=== PATIENT | female | born 1975 | race Caucasian/White ===

== ENCOUNTER 2023-09-12 06:57 | Outpatient (OUT) | payer OTHER, SELFPAY ==
--- NOTE | 2023-09-12 | MM_ITS ---
Patient Name: STACY FONSECA MR#: [id number] : 1975 Exam Date: 09/12/2023 Ordering Doctor: DR TAHMINA SCHULZ RADIOLOGY REPORT PROCEDURE: MM TOMOSYNTHESIS SCREENING BI COMPARISON: MG MAMM SCREEN 3D ALVARADO CAD, 05/06/2021. MG MAMM SCREEN 3D ALVARADO CAD, 06/28/2022. INDICATIONS: Alvarado Screening Mammogram Calculator Name NCI Breast Cancer Risk Assessment Tool 5 Year Breast Cancer Risk 1.30% Lifetime Breast Cancer Risk 12.30% Personal Breast Cancer No Personal Ovarian Cancer No Treatments None Family Cancers Aunt-paternal with breast cancer at age 43; Aunt-paternal with breast cancer at age 44; Father with lung cancer at age 52; Uncle-paternal with lung cancer at age 53; Uncle-paternal with lung cancer at age 54. LOCATION: [facility] BREAST COMPOSITION: Heterogeneously dense,which may obscure small masses. FINDINGS: DIAGNOSTIC CATEGORY 0--INCOMPLETE: NEED ADDITIONAL IMAGING EVALUATION. This exam includes additional mammographic views for implant evaluation and shows no visible implant abnormality. Scattered benign-appearing calcifications are present. RIGHT BREAST: No significant suspicious finding. LEFT BREAST: 2 new well-circumscribed irregular nodules best seen on the CC projection in the medial half breast measuring 1.1 x 0.7 cm in the anterior breast and 1.1 x 0.7 cm in the mid to posterior breast. One of these lesions is clearly seen on the MLO projection measuring 8.6 mm a 2nd lesion is likely along the cranial anterior breast measuring 1.2 cm. Spot compression views and ultrasound follow-up is required. RECOMMENDATIONS: ADDITIONAL MAMMOGRAPHIC VIEWS REQUIRED: LEFT BREAST - spot compression views of 2 separate nodules ULTRASOUND: LEFT BREAST PLEASE NOTE: A NORMAL MAMMOGRAM DOES NOT EXCLUDE THE POSSIBILITY OF BREAST CANCER. A CLINICALLY SUSPICIOUS PALPABLE LUMP SHOULD BE BIOPSIED. Dictated by: Jose J Durant MD on 09/12/2023 at 09:42 Approved by: Jose J Durant MD on 09/12/2023 at 09:47
== END 2023-09-12 06:58 | disposition home or self-care (01) ==
LOC: MAMMO 06:57
PROVIDERS: PCP Nurse Practitioner Family; Visit Provider Nurse Practitioner Family
DX: Z12.31 Encounter for screening mammogram for malignant neoplasm of breast (principal); Z80.3 Family history of malignant neoplasm of breast; Z80.1 Family history of malignant neoplasm of trachea, bronchus and lung; N63.20 Unspecified lump in the left breast, unspecified quadrant
CPT/HCPCS: 77063; 77067

== ENCOUNTER 2023-10-03 12:47 | Outpatient (OUT) | payer OTHER, SELFPAY ==
--- NOTE | 2023-10-03 | US_ITS ---
Patient Name: STACY FONSECA MR#: [id number] : 1975 Exam Date: 10/03/2023 Ordering Doctor: DR TAHMINA SCHULZ RADIOLOGY REPORT PROCEDURE: MM DIAGNOSTIC MAMMO UNILAT LT, 10/03/2023, 12:54 US BREAST LT LIMITED, 10/03/2023, 12:10 COMPARISON: MM TOMOSYNTHESIS SCREENING BI, 09/12/2023. INDICATIONS: Abnormal Mammogram R92.8 Calculator Name NCI Breast Cancer Risk Assessment Tool 5 Year Breast Cancer Risk 1.30% Lifetime Breast Cancer Risk 12.30% Personal Breast Cancer No Personal Ovarian Cancer No Treatments None Family Cancers Aunt-paternal with breast cancer at age 43; Aunt-paternal with breast cancer at age 44; Father with lung cancer at age 52; Uncle-paternal with lung cancer at age 53; Uncle-paternal with lung cancer at age 54. LOCATION: [facility] BREAST COMPOSITION: Heterogeneously dense,which may obscure small masses. FINDINGS: DIAGNOSTIC CATEGORY 3--PROBABLY BENIGN FINDING. THE FOLLOWING FINDING(S) HAS A HIGH PROBABILITY OF A BENIGN ETIOLOGY: Spot compression views of the left breast demonstrate 2 focal nodules at the 11 o'clock position measuring 8.9 x 6.7 mm with lobular margins and at the 8 o'clock position measuring 9.8 x 6.9 mm. Ultrasound demonstrates 3 focal lesions. At the 11 o'clock position is an oval 8.8 x 3.4 x 6.9 mm area of hypoechogenicity with multiple internal echoes and no color flow, a complex cyst is favored. Identified at the 11 o'clock position is an oval area of hypoechogenicity with a hypervascular hilum measuring 5.4 x 2.2 x 4.6 mm, a lymph node is favored. At the 8 o'clock position is a focal area of anechoic echogenicity with a few low-level echoes measuring 4.1 by 2.3 x 2.1 mm. Complex cyst is favored. Given the multiplicity and indeterminate ultrasound appearance. Six-month follow-up left diagnostic mammogram and ultrasound is recommended to document stability RECOMMENDATIONS: SHORT TERM FOLLOW-UP DIAGNOSTIC MAMMOGRAM LEFT BREAST IN 6 MONTHS. SHORT TERM FOLLOW-UP ULTRASOUND LEFT BREAST IN 6 MONTHS. PLEASE NOTE: A NORMAL MAMMOGRAM DOES NOT EXCLUDE THE POSSIBILITY OF BREAST CANCER. A CLINICALLY SUSPICIOUS PALPABLE LUMP SHOULD BE BIOPSIED. Dictated by: Jose J Durant MD on 10/03/2023 at 13:39 Approved by: Jose J Durant MD on 10/03/2023 at 13:42
--- NOTE | 2023-10-03 12:52 | MM_ITS ---
Patient Name: STACY FONSECA MR#: [id number] : 1975 Exam Date: 10/03/2023 Ordering Doctor: DR TAHMINA SCHULZ RADIOLOGY REPORT PROCEDURE: MM DIAGNOSTIC MAMMO UNILAT LT, 10/03/2023, 12:54 US BREAST LT LIMITED, 10/03/2023, 12:10 COMPARISON: MM TOMOSYNTHESIS SCREENING BI, 09/12/2023. INDICATIONS: Abnormal Mammogram R92.8 Calculator Name NCI Breast Cancer Risk Assessment Tool 5 Year Breast Cancer Risk 1.30% Lifetime Breast Cancer Risk 12.30% Personal Breast Cancer No Personal Ovarian Cancer No Treatments None Family Cancers Aunt-paternal with breast cancer at age 43; Aunt-paternal with breast cancer at age 44; Father with lung cancer at age 52; Uncle-paternal with lung cancer at age 53; Uncle-paternal with lung cancer at age 54. LOCATION: [facility] BREAST COMPOSITION: Heterogeneously dense,which may obscure small masses. FINDINGS: DIAGNOSTIC CATEGORY 3--PROBABLY BENIGN FINDING. THE FOLLOWING FINDING(S) HAS A HIGH PROBABILITY OF A BENIGN ETIOLOGY: Spot compression views of the left breast demonstrate 2 focal nodules at the 11 o'clock position measuring 8.9 x 6.7 mm with lobular margins and at the 8 o'clock position measuring 9.8 x 6.9 mm. Ultrasound demonstrates 3 focal lesions. At the 11 o'clock position is an oval 8.8 x 3.4 x 6.9 mm area of hypoechogenicity with multiple internal echoes and no color flow, a complex cyst is favored. Identified at the 11 o'clock position is an oval area of hypoechogenicity with a hypervascular hilum measuring 5.4 x 2.2 x 4.6 mm, a lymph node is favored. At the 8 o'clock position is a focal area of anechoic echogenicity with a few low-level echoes measuring 4.1 by 2.3 x 2.1 mm. Complex cyst is favored. Given the multiplicity and indeterminate ultrasound appearance. Six-month follow-up left diagnostic mammogram and ultrasound is recommended to document stability RECOMMENDATIONS: SHORT TERM FOLLOW-UP DIAGNOSTIC MAMMOGRAM LEFT BREAST IN 6 MONTHS. SHORT TERM FOLLOW-UP ULTRASOUND LEFT BREAST IN 6 MONTHS. PLEASE NOTE: A NORMAL MAMMOGRAM DOES NOT EXCLUDE THE POSSIBILITY OF BREAST CANCER. A CLINICALLY SUSPICIOUS PALPABLE LUMP SHOULD BE BIOPSIED. Dictated by: Jose J Durant MD on 10/03/2023 at 13:39 Approved by: Jose J Durant MD on 10/03/2023 at 13:42
--- OUTSIDE RECORDS SUMMARY | 2023-10-03 12:54 | XMS_ITS | CCD ---
Author Name Unknown Address [facility] [place] [address] Organization [facility] Care Team Providers Care Fabrication And Layout Craftsman Name Role Phone DR TAHMINA COSBY Admitting Unavailable HARJEET, DR TAHMINA Milian Attending Unavailable HARJEET, DR TAHMINA Milian Primary Care Unavailable DR CHIVO GOOD Consulting Unavailable HARJEET, DR TAHMINA Milian Consulting Unavailable Harjeet RESIDENTIAL REAL ESTATE APPRAISER-CERTIFIED MASTER SAFECRACKER, Tahmina Alvarez Primary Care Provider Allergies Allergy Classification Reported Allergen(s) Allergy Type Date of Onset Reaction(s) Facility (1 source) Penicillins Propensity to adverse reactions to drug 11-22-2022 [facility] Medications Current Medications Medication Drug Class(es) Dates Sig (Normalized) Sig (Original) [id number] 200 actuat albuterol 0.09 mg/actuat metered dose inhaler (1 source) beta2-Adrenergic Agonist Start: 11-28-2022 take 2 puff(s) by inhalation every six hours as needed for wheezing albuterol (PROVENTIL HFA;VENTOLIN HFA) 90 mcg/actuation inhaler Indications: Mild intermittent asthma without complication INHALE 2 PUFFS EVERY 6 HOURS NEEDED FOR WHEEZING 8 g 5 11/28/2022 Active Ethinyl Estradiol / Levonorgestrel (1 source) Progestin, Estrogen, Progestin-containi ng Intrauterine Device Start: 11-22-2022 take 1 tablet by mouth once in the morning levonorgestreL-eth inyl estrad (SEASONALE) 0.15 mg-30 mcg (91) per tablet Take 1 tablet by mouth in the morning. 91 tablet 3 11/22/2022 Active levothyroxine sodium 0.05 mg oral tablet (1 source) l-Thyroxine Start: 07-12-2022 take 1 tablet by mouth in the morning levothyroxine (SYNTHROID, LEVOTHROID) 50 MCG tablet Take 1 tablet (50 mcg total) by mouth in the morning. 0 07/12/2022 Active linaclotide 0.145 mg oral capsule (1 source) Guanylate Cyclase-C Agonist Start: 04-18-2023 take 1 capsule by mouth once daily LINZESS 145 mcg capsule Indications: Irritable bowel syndrome with constipation TAKE 1 CAPSULE BY MOUTH EVERY DAY 90 capsule 1 04/18/2023 Active liothyronine sodium 0.005 mg oral tablet (1 source) l-Triiodothyronine take 1 tablet by mouth in the morning liothyronine (CYTOMEL) 5 MCG tablet Take 1 tablet (5 mcg total) by mouth in the morning. 0 Active terbinafine 250 mg oral tablet (1 source) Allylamine Antifungal Start: 07-26-2023 End: 10-24-2023 take 1 tablet by mouth in the morning terbinafine (LamISIL) 250 mg tablet Indications: Onychomycosis Take 1 tablet (250 mg total) by mouth in the morning for 90 days. 90 tablet 0 07/26/2023 10/24/2023 Active Problems Active Problems Problem Classification Problem Date Documented Da te Episodic/Chronic Asthma (1 source) Asthma; Translations: [Unspecified asthma, uncomplicated] Onset: 10-11-2022 10-11-2022 Chronic Mycoses (1 source) Onychomycosis; Translations: [Tinea unguium] Onset: 07-26-2023 07-26-2023 Episodic Other gastrointestinal disorders (1 source) Irritable bowel syndrome; Translations: [Irritable bowel syndrome without diarrhea] Onset: 10-11-2022 10-11-2022 Chronic Other screening for suspected conditions (not mental disorders or infectious disease) (6 sources) Encounter for screening mammogram for malignant neoplasm of breast; Translations: [Mammography abnormal] Onset: 06-28-2022 Episodic Residual codes; unclassified (1 source) Family history of malignant neoplasm of breast; Translations: [FAMILY HX MALIG NEOPLASM OF BREAST] Onset: 07-02-2022 Episodic Residual codes; unclassified (1 source) Family history of malignant neoplasm of trachea, bronchus and lung; Translations: [FAM HX MALIG NEOPLSM TRACH BRON LNG] Onset: 07-02-2022 Episodic Thyroid disorders (1 source) Xavi thyroiditis; Translations: [Autoimmune thyroiditis] Onset: 12-26-2017 10-11-2022 Chronic Past or Other Problems Problem Classification Problem Date Documented Date Episodic/Chronic Esophageal disorders (1 source) Gastroesophageal reflux disease; Translations: [Gastro-esophageal reflux disease without esophagitis] Onset: 10-11-2022 Resolved: 11-22-2022 11-22-2022 Chronic Mood disorders (1 source) Mood disorders Onset: 01-22-2023 01-22-2023 Other connective tissue disease (1 source) Foot pain; Translations: [Pain in unspecified foot] Onset: 10-11-2022 10-11-2022 Episodic Other nutritional; endocrine; and metabolic disorders (1 source) Overweight; Translations: [Overweight] Onset: 10-11-2022 10-11-2022 Episodic Results Test Name Value Interpretation Reference Range Facil ity MG MAMM SCREEN 3D ALVARADO CADon 06-28-2022 MG MAMM SCREEN 3D ALVARADO CAD Patient: GRACE FONSECA Exam Date: 06/28/2022 : 1975 Gender:F Ordering : DR TAHMINA COSBY Admission #: [id number] Family : Order #: [id number] CLICK HERE TO VIEW EXAM RADIOLOGY REPORT PROCEDURE: MAMMOGRAM SCREENING 3D BILATERAL CAD COMPARISON: MG MAMM SCREEN 3D ALVARADO CAD, 05/06/2021. MG MAMM SCREEN ALVARADO W CAD, 01/14/2020. INDICATIONS: Screening mammography Calculator Name NCI Breast Cancer Risk Assessment Tool 5 Year Breast Cancer Risk 1.30% Lifetime Breast Cancer Risk 12.50% Personal Breast Cancer No Personal Ovarian Cancer No Treatments None Family Cancers Aunt-paternal with breast cancer at age 43; Aunt-paternal with breast cancer at age 44; Father with lung cancer at age 52; Uncle-paternal with lung cancer at age 53; Uncle-paternal with lung cancer at age 54. LOCATION: [facility] BREAST COMPOSITION: Heterogeneously dense,which may obscure small masses. FINDINGS: DIAGNOSTIC CATEGORY 2--BENIGN FINDING: RIGHT BREAST: No significant suspicious finding. Stable benign-appearing lymph node within anterior upper inner quadrant. This exam includes additional mammographic views for implant evaluation and shows no visible implant abnormality. No significant change has occurred. LEFT BREAST: No significant suspicious finding. This exam includes additional mammographic views for implant evaluation and shows no visible implant abnormality. No significant change has occurred. RECOMMENDATIONS: ROUTINE MAMMOGRAM AND CLINICAL EVALUATION IN 12 MONTHS. PLEASE NOTE: A NORMAL MAMMOGRAM DOES NOT EXCLUDE THE POSSIBILITY OF BREAST CANCER. A CLINICALLY SUSPICIOUS PALPABLE LUMP SHOULD BE BIOPSIED. Dictated by: Chivo Good M.D. on 06/28/2022 at 14:21 Approved by: Chivo Good M.D. on 06/28/2022 at 14:28 Normal [facility] IMAGE-GUIDED PAP W/AGE BASED SCR PROTOCOLSon 10-30-2020 COMMENT Normal [facility] Comment on above: Result Comment: This order for age-based cervical cancer and STI screening follows ACOG guidelines(PB 168, 140, IPU235). See individual assays for performing site location. Performed By: #### 9 [id number], [id number] #### [facility] [address] Maintenance Associate: Estuardo Navarrete MD Result Comment: EXPL ANATORY NOTE: The Pap is a screening test for cervical cancer. It is not a diagnostic test and is subject to false negative and false positive results. It is most reliable when a satisfactory sample, regularly obtained, is submitted with relevant clinical findings and history, and when the Pap result is evaluated along with historic and current clinical information. THINPREP TIS PAP AND HPV mRN A E6/E7 REFLEX HPV 16,18/45on 10-30-2020 CLINICAL INFORMATION: Normal [facility] Comment on above: Result Comment: Rout ine exam Performed By: #### 9 [id number], [id number] #### [facility] [address] Maintenance Associate: Estuardo Navarrete MD COMMENT: Normal [facility] Comment on above: Result Comment: This Pap test has been evaluated with computer assisted technology. Performed By: #### 9 8718, [id number] #### [facility] [address] Maintenance Associate: Estuardo Navarrete MD FURNITURE BUILDER: [facility] Comment on above: Result Comment: BH, CT(ASCP) CT screening location: [place] [address]. Performed By: #### 9 1414, [id number] #### [facility], [address] [place] [address] Maintenance Associate: Estuardo Navarrete MD INTERPRETATION/RE SULT: Normal [facility] Comment on above: Result Comment: Nega tive for intraepithelial lesion or malignancy. Performed By: #### 9 1414, [id number] #### [facility], [address] [place] [address] Maintenance Associate: Estuardo Navarrete MD LMP: Normal [facility] Comment on above: Result Comment: None given Performed By: #### 9 1414, [id number] #### [facility], [address] [place] [address] Maintenance Associate: Estuardo Navarrete MD Platelet mean volume (Bld) [Entitic vol] Not Detected Normal Not Detected [facility] Comment on above: Result Comment: Meth odology: Flight Test Data Acquisition Technician-Mediated Amplification This assay detects E6/E7 viral messenger RNA (mRNA) from 14 high-risk HPV types (16,18,31,33,35,39,45,51,52,56,58,59,66,68). The analytical performance characteristics of this assay have been determined by [facility]. The modifications have not been cleared or approved by the FDA. This assay has been validated pursuant to the CLIA regulations and is used for clinical purposes. For additional information, please refer to http://education.DigitalOcean.Aveillant/FPA793s1 (This link if provided for information/ educational purposes only.) Performed By: #### 9 1790, [id number] #### [facility], [address] [place] [address] Maintenance Associate: Estuardo Navarrete MD PREV. BX: Normal [facility] Comment on above: Result Comment: None given Performed By: #### 9 1414, [id number] #### [facility], [address] [place] [address] Maintenance Associate: Estuardo Navarrete MD PREV. PAP: Normal [facility] Comment on above: Result Comment: None given Performed By: #### 9 1414, [id number] #### [facility], [address] [place] [address] Maintenance Associate: Estuardo Navarrete MD REVIEW FURNITURE BUILDER: Normal [facility] Comment on above: Result Comment: RLP, CT(ASCP) CT screening location: [place] [address]. Performed By: #### 9 1414, [id number] #### [facility], [address] [place] [address] Maintenance Associate: Estuardo Navarrete MD SOURCE: Normal [facility] Comment on above: Result Comment: None given Performed By: #### 9 1414, [id number] #### [facility], [address] [place] [address] Maintenance Associate: Estuardo Navarrete MD STATEMENT OF ADEQUACY: Normal [facility] Comment on above: Result Comment: Sati sfactory for evaluation. Endocervical/transformation zone component absent. Performed By: #### 9 1414, [id number] #### [facility], [address] [place] [address] Maintenance Associate: Estuardo Navarrete MD Encounters Encounter Date Encounter Type Care Provider Facility Start: 09-17-2023 Orders Only Tahmina Cosby APRN-CERTIFIED MASTER SAFECRACKER Work Phone: [facility] Comment on above: Abnormal mammogram ( Primary Dx) Start: 06-28-2022 End: 06-29-[address] TAHMINA COSBY Facility:[facility] Procedures Date Procedure Procedure Detail Performing Clinician Start: 09-12-2023 Mammography Tahmina Cosby APRN-CERTIFIED MASTER SAFECRACKER Work Phone: Start: 01-22-2023 Adult depression scr eening assessment Tahmina Cosby RESIDENTIAL REAL ESTATE APPRAISER-CERTIFIED MASTER SAFECRACKER Work Phone: Plan of Treatment Date Care Activity Detail Author Start: 02-09-2026 Screening for malign ant neoplasm of colon Colon Cancer Screening 3 Year Cologuard [facility] Start: 10-27-2025 Screening for malign ant neoplasm of cervix Pap Smear [facility] Start: 09-12-2024 Screening for malign ant neoplasm of breast Mammogram [facility] Start: 01-23-2024 Adult BMI Screening Adult BMI Screen ing [facility] Start: 01-23-2024 Depression Screening Depression Scre ening [facility] Start: 01-23-2024 Tobacco Screening Tobacco Screening [facility] Start: 09-17-2023 End: 09-17-2024 MG Breast duct - left Views W contrast intra duct Mammography diagnostic unilateral left with CAD Imaging Routine Abnormal mammogram Expected: 09/17/2023, Expires: 09/17/2024 [facility] Work Phone: Comment on above: Expected: 09/17/2023 , Expires: 09/17/2024 Start: 09-17-2023 End: 09-17-2024 US Breast - left limited Ultrasound breast limited left Imaging Routine Abnormal mammogram Expected: 09/17/2023, Expires: 09/17/2024 [facility] Comment on above: Expected: 09/17/2023 , Expires: 09/17/2024 Start: 1992 DTaP,Tdap and Td Vaccines (1 - Tdap) DTaP,Tdap and Td Vaccines (1 - Tdap) [facility] Start: 12-20-1991 Adult BMI Follow Up Plan Adult BMI Follow Up Plan [facility] Immunizations Immunization Date Immunization Notes Care Provider Ray sheldon 06-26-2023 influenza virus vaccine, unspecified formulation Tahmina Harjeet RESIDENTIAL REAL ESTATE APPRAISER-CERTIFIED MASTER SAFECRACKER Work Phone: [facility] 09-26-2017 Influenza, injectabl e, Madin Liberty Canine Kidney, preservative free, quadrivalent Tahmina Harjeet MORENO-CERTIFIED MASTER SAFECRACKER Work Phone: [facility] 09-26-2017 tuberculin skin test ; purified protein derivative solution, intradermal Tahmina Cosby APRN-CERTIFIED MASTER SAFECRACKER Work Phone: [facility] Payers Date Payer Category Payer Private Health Insurance [facility] [id number] 2022-Present [phone] [address] [address] [place] [address] [id number] 1975 Unknown [id number] 1961 Private Health Insurance [id number] Social History Date Type Detail Facility Start: 11-22-2022 Tobacco smoking status NHIS Never smoked tobacco [facility] Start: 11-22-2022 Tobacco use and exposure Smokeless tobacco non-user [facility] Start: 01-22-2023 Alcohol intake Ex-drinker (finding) [facility] Start: 11-20-2022 End: 01-22-[address] [facility] Start: 11-20-2022 End: 01-22-2023 Tobacco use panel [facility] How hard is it for you to pay for the very basics like food, housing, medical care, and heating Not hard at all [facility] Start: 11-22-2022 Alcohol Comment occasion [facility] Start: 1975 Sex Assigned At Not on file [facility] NEGATED: Highlighted rowStart: NINF History of tobacco use Passive smoker [facility] Evaluation note Note Date & Type Note Facility Evaluation note Diagnosis Abnormal mammogram- Primary Abnormal mammogram, unspecified documented in this encounter [facility] Instructions Note Date & Type Note Facility Instructions Not on filedocumented in this en counter [facility] Summary Purpose Family History No Family History Records FoundNo Family History Records Found Advance Directives No Advanced Directives Records FoundNo Advanced Directives Records Found Additional Source Comments INFORMATION SOURCE (unrecogn ized section and content) DATE CREATED AUTHOR 11/01/2020 [facility] DATE CREATED AUTHOR AUTHOR'S ORGANIZ ATION 07/03/2022 [facility] Care Teams (unrecognized sec tion and content) Fabrication And Layout Craftsman Relationship Specialty Start Date End Date Tahmina Cosby, TIFFANIE-GERRI [address] [place] [address] PCP - General Internal Medicine 10/10/22 FOR RECORDS PERTAINING TO PATIENTS WHO ARE OR HAVE BEEN ENROLLED IN A CHEMICAL DEPENDENCY/SUBSTANCEABUSE PROGRAM, SOME INFORMATION MAY BE OMITTED. This clinical summary was aggregated from multiple sources. Caution should be exercised in using it in the provision of clinical care. This summary normalizes information from multiple sources, and as a consequence, information in this document may materially change the coding, format and clinical context of patient data. In addition, data may be omitted in some cases. CLINICAL DECISIONS SHOULD BE BASED ON THE PRIMARY CLINICAL RECORDS. [facility] [employer] [facility]. provides no warranty or guarantee of the accuracy or completeness of information in this document.
== END 2023-10-03 12:48 | disposition home or self-care (01) ==
LOC: MAMMO 12:47
PROVIDERS: PCP Nurse Practitioner Family; Visit Provider Nurse Practitioner Family
DX: R92.8 Other abnormal and inconclusive findings on diagnostic imaging of breast (principal); Z80.3 Family history of malignant neoplasm of breast; Z80.1 Family history of malignant neoplasm of trachea, bronchus and lung
CPT/HCPCS: 76642; 77065

== ENCOUNTER 2024-04-10 09:17 | Outpatient (OUT) | payer OTHER, SELFPAY ==
--- OUTSIDE RECORDS SUMMARY | 2024-04-10 09:22 | XMS_ITS | CCD ---
Author Organization [facility] Inform ion Partnership [facility] Care Team Providers Care Dining Chair Seat Cushion Trimmer Name Role Phone DR DALILA COSBY Admitting Unavailable HARJEET, DR DALILA Milian Attending Unavailable HARJEET, DR DALILA Milian Primary Care Unavailable DR CHIVO GOOD Consulting Unavailable HARJEET, DR DALILA Milian Consulting Unavailable Harjeet RELATIONSHIP EXECUTIVE-KELLER MACHINE OPERATOR, Dalila Alvarez Primary Care Provider DALILA COSBY Attending Unavailable DALILA COSBY Referring Unavailable DALILA COSBY Primary Care Unavailable Allergies Allergy Classification Reported Allergen(s) Allergy Type Date of Onset Reaction(s) Facility (4 sources) Penicillins; Translations: [PENICILLINS] Propensity to adverse reactions to drug 11-22-2022 [facility] Medications Current Medications Medication Drug Class(es) Dates Sig (Normalized) Sig (Original) Ethinyl Estradiol / Levonorgestrel (3 sources) Progestin, Estrogen, Progestin-containi ng Intrauterine Device Start: 11-22-2022 take 1 tablet by mouth once in the morning levonorgestreL-eth inyl estrad (SEASONALE) 0.15 mg-30 mcg (91) per tablet Take 1 tablet by mouth in the morning. 91 tablet 3 11/22/2022 Active levothyroxine sodium 0.05 mg oral tablet (3 sources) l-Thyroxine Start: 07-12-2022 take 1 tablet by mouth in the morning levothyroxine (SYNTHROID, LEVOTHROID) 50 MCG tablet Take 1 tablet (50 mcg total) by mouth in the morning. 0 07/12/2022 Active linaclotide 0.145 mg oral capsule (4 sources) Guanylate Cyclase-C Agonist Start: 10-21-2023 take 1 capsule by mouth once daily LINZESS 145 mcg capsule Indications: Irritable bowel syndrome with constipation TAKE 1 CAPSULE BY MOUTH EVERY DAY 90 capsule 1 10/21/2023 Active Start: 04-18-2023 End: 10-21-2023 take 1 capsule by mouth once daily LINZESS 145 mcg capsule Indications: Irritable bowel syndrome with constipation TAKE 1 CAPSULE BY MOUTH EVERY DAY 90 capsule 1 04/18/2023 10/21/2023 Discontinued liothyronine sodium 0.005 mg oral tablet (3 sources) l-Triiodothyronine take 1 tablet by mouth in the morning liothyronine (CYTOMEL) 5 MCG tablet Take 1 tablet (5 mcg total) by mouth in the morning. 0 Active terbinafine 250 mg oral tablet (2 sources) Allylamine Antifungal Start: 07-26-20 End: 10-24-19 24 take 1 tablet by mouth in the morning terbinafine (LamISIL) 250 mg tablet Indications: Onychomycosis Take 1 tablet (250 mg total) by mouth in the morning for 90 days. 90 tablet 0 07/26/2023 10/24/2023 Active Completed/Discontinued Medications Medication Drug Class(es) Dates Sig (Normalized) Sig (Original) [id number] 200 actuat albuterol 0.09 mg/actuat metered dose inhaler (3 sources) beta2-Adrenergic Agonist Start: 11-28-2022 End: 12-03-2023 take 2 puff(s) by inhalation every six hours as needed for wheezing albuterol (PROVENTIL HFA;VENTOLIN HFA) 90 mcg/actuation inhaler Indications: Mild intermittent asthma without complication INHALE 2 PUFFS EVERY 6 HOURS NEEDED FOR WHEEZING 8 g 5 11/28/2022 12/03/2023 Discontinued (Patient Stopped On Own) Problems Active Problems Problem Classification Problem Date Documented Da te Episodic/Chronic Asthma (3 sources) Asthma; Translations: [Unspecified asthma, uncomplicated] Onset: 10-11-2022 10-11-2022 Chronic Other gastrointestinal disorders (3 sources) Irritable bowel syndrome; Translations: [Irritable bowel syndrome without diarrhea] Onset: 10-11-2022 10-11-2022 Chronic Other gastrointestinal disorders (2 sources) Irritable bowel syndrome characterized by constipation; Translations: [Irritable bowel syndrome with constipation] 10-20-2023 Chronic Residual codes; unclassified (1 source) Family history of malignant neoplasm of breast; Translations: [FAMILY HX MALIG NEOPLASM OF BREAST] Onset: 07-02-2022 Episodic Residual codes; unclassified (1 source) Family history of malignant neoplasm of trachea, bronchus and lung; Translations: [FAM HX MALIG NEOPLSM TRACH BRON LNG] Onset: 07-02-2022 Episodic Residual codes; unclassified (1 source) Body mass index 20-24 - normal; Translations: [Body mass index (BMI) 22.0-22.9, adult] 12-03-2023 Episodic Residual codes; unclassified (1 source) Body mass index (BMI) 22.0-22.9, adult; Translations: [Body mass index (BMI) 22.0-22.9, adult] Onset: 12-03-2023 Episodic Thyroid disorders (4 sources) Xavi thyroiditis; Translations: [Autoimmune thyroiditis] Onset: 12-26-2017 10-11-2022 Chronic Unclassified (1 source) Annual Exam Onset: 12-03-2023 Past or Other Problems Problem Classification Problem Date Documented Date Episodic/Chronic Esophageal disorders (3 sources) Gastroesophageal reflux disease; Translations: [Gastro-esophageal reflux disease without esophagitis] Onset: 10-11-2022 Resolved: 11-22-2022 11-22-2022 Chronic Mood disorders (3 sources) Mood disorders Onset: 01-22-2023 Resolved: 12-03-2023 01-22-2023 Mycoses (3 sources) Onychomycosis; Translations: [Tinea unguium] Onset: 07-26-2023 07-26-2023 Episodic Other connective tissue disease (3 sources) Foot pain; Translations: [Pain in unspecified foot] Onset: 10-11-2022 10-11-2022 Episodic Other nutritional; endocrine; and metabolic disorders (3 sources) Overweight; Translations: [Overweight] Onset: 10-11-2022 Resolved: 12-03-2023 10-11-2022 Episodic Other screening for suspected conditions (not mental disorders or infectious disease) (8 sources) Encounter for screening mammogram for malignant neoplasm of breast; Translations: [Mammography abnormal] Onset: 06-28-2022 Episodic Results Test Name Value Interpretation Reference Range Facil ity MG MAMM SCREEN 3D ALVARADO CADon 06-28-2022 MG MAMM SCREEN 3D ALVARADO CAD Patient: RAYMUNDO STACY Priya Exam Date: 06/28/2022 : 1975 Gender:F Ordering : DALILA COSBY Admission #: [id number] Family : Order #: [id number] CLICK HERE TO VIEW EXAM RADIOLOGY REPORT [...] lung cancer at age 52. LOCATION: [facility] BREAST COMPOSITION: Heterogeneously dense,which may obscure [...] Good M.D. on 06/28/2022 at 14:28 Normal [facility] IMAGE-GUIDED PAP W/AGE BASED SCR PROTOCOLSon 10-30-2020 COMMENT Normal [facility] Comment on above: Result Comment: This order for age-based cervical cancer and STI screening follows ACOG guidelines(PB 168, 140, URD989). See individual assays for performing site location. Performed By: #### 9 [id number], [id number] #### [facility]-[address] [place] [address] Check Writer Salesperson: Estuardo Navarrete MD Result Comment: EXPL ANATORY [...] Rout ine exam Performed By: #### 9 1413, [id number] #### [facility]-[address], [address] [place], [place] [id number] Check Writer Salesperson: Estuardo Navarrete MD COMMENT: Normal [facility] Comment on above: Result Comment: This Pap test has been evaluated with computer assisted technology. Performed By: #### 9 4667, [id number] #### [facility]-[address], [address] [place] [address] Check Writer Salesperson: Estuardo Navarrete MD MICROFICHE DUPLICATOR: Beth [facility] Comment on above: Result Comment: BH, CT(ASCP) CT screening location: [place] [address]. Performed By: #### 9 3874, 01994 #### [facility]-[address], [address] [place] [address] Check Writer Salesperson: Estuardo Navarrete MD INTERPRETATION/RE SULT: Normal [facility] Comment on above: Result Comment: Nega tive for intraepithelial lesion or malignancy. Performed By: #### 9 0702, [id number] #### [facility]-[address], [address] [place], [place] [id number] Check Writer Salesperson: Estuardo Navarrete MD LMP: Normal [facility] Comment on above: Result Comment: None given Performed By: #### 9 1417, [id number] #### [facility]-[address], [address] [place] [address] Check Writer Salesperson: Estuardo Navarrete MD Platelet mean volume (Bld) [Entitic vol] Not Detected Normal Not Detected [facility] Comment on above: Result Comment: Meth odology: Gis Specialist-Mediated Amplification This assay detects E6/E7 viral messenger RNA (mRNA) from 14 high-risk HPV types (16,18,31,33,35,39,45,51,52,56,58,59,66,68). The analytical performance characteristics of this assay have been determined by [employer]. The modifications have not been cleared or approved by the FDA. This assay has been validated pursuant to the CLIA regulations and is used for clinical purposes. For additional information, please refer to http://education.[employer]/JOH857k8 (This link if provided for information/ educational purposes only.) Performed By: #### 9 1665, [id number] #### [facility]-[address] Check Writer Salesperson: Estuardo Navarrete MD PREV. BX: Normal [facility] Comment on above: Result Comment: None given Performed By: #### 9 6395, 44391 #### [facility]-[address] Check Writer Salesperson: Estuardo Navarrete MD PREV. PAP: Normal [facility] Comment on above: Result Comment: None given Performed By: #### 9 1413, 37581 #### [facility]-[address] Check Writer Salesperson: Estuardo Navarrete MD REVIEW MICROFICHE DUPLICATOR: Normal [facility] Comment on above: Result Comment: RLP, CT(ASCP) CT screening location: [place] [address]. Performed By: #### 9 5495, 41090 #### [facility]-[address] Check Writer Salesperson: Estuardo Navarrete MD SOURCE: Normal [facility] Comment on above: Result Comment: None given Performed By: #### 9 5200, 11529 #### [facility]-[address] [place] [address] Check Writer Salesperson: Estuardo Navarrete MD STATEMENT OF ADEQUACY: Normal [facility] Comment on above: Result Comment: Sati sfactory for evaluation. Endocervical/transformation zone component absent. Performed By: #### 9 1414, 99045 #### [facility] [address] [place] [address], [address] [place] [address] - [place] [address] Check Writer Salesperson: Estuardo Navarrete MD Vital Signs Date Time Vital Sign Value Performing Clinician Tom thrasher 12-03-2023 16:13-0400 Body height 154.9 cm Dalila Cosby RELATIONSHIP EXECUTIVE-KELLER MACHINE OPERATOR [facility] 12-03-2023 16:13-0400 Body mass index (BMI) [Ratio] 22.94 kg/m2 Dalila Cosby RELATIONSHIP EXECUTIVE-KELLER MACHINE OPERATOR [facility] 12-03-2023 16:13-0400 Body temperature 99.3 [degF] Dalila Cosby RELATIONSHIP EXECUTIVE-KELLER MACHINE OPERATOR [facility] 12-03-2023 16:13-0400 Body weight 55.07 kg Dalila Cosby APRN-KELLER MACHINE OPERATOR [facility] 12-03-2023 16:13-0400 Diastolic blood pressure 78 mm[Hg] Dalila Cosby APRN-KELLER MACHINE OPERATOR [facility] Phone: [facility] 12-03-2023 16:13-0400 Heart rate 79 /min Dalila Cosby APRN-KELLER MACHINE OPERATOR Work Phone[facility] 12-03-2023 16:13-0400 Respiratory rate 18 /min Dalila Csoby APRN-KELLER MACHINE OPERATOR [facility] 12-03-2023 16:13-0400 SaO2% (BldA) [Mass fraction] 99 % Dalila Cosby APRN-KELLER MACHINE OPERATOR [facility] 12-03-2023 16:13-0400 Systolic blood pressure 120 mm[Hg] Dalila Cosby RELATIONSHIP EXECUTIVE-KELLER MACHINE OPERATOR Work Phone: [employer] Encounters Encounter Date Encounter Type Care Provider Facility Start: 12-03-2023 End: 12-03-2023 ambulatory DALILA COSBY [facility] Start: 12-03-2023 Encounter for genera l adult medical examination without abnormal findings DALILA COSBY [facility] Start: 12-03-2023 End: 12-03-2023 Patient encounter procedure Dalila Cosby RELATIONSHIP EXECUTIVE-KELLER MACHINE OPERATOR Work Phone: [employer] Work Phone: Start: 12-03-2023 End: 12-03-2023 Periodic preventive med est patient 40-64yrs Dalila Cosby RELATIONSHIP EXECUTIVE-KELLER MACHINE OPERATOR Work Phone: [facility] Comment on above: Visit for annual [facility] examination (Primary Dx); BMI 22.0-22.9, adult; Irritable bowel syndrome with constipation; Xavi's thyroiditis Start: 10-20-2023 Refill Dalila Cosby RELATIONSHIP EXECUTIVE-KELLER MACHINE OPERATOR Work Phone: [facility] Comment on above: Irritable bowel synd juan with constipation Start: 09-17-2023 Orders Only Dalila Cosby RELATIONSHIP EXECUTIVE-KELLER MACHINE OPERATOR Work Phone: [facility] Comment on above: Abnormal mammogram ( Primary Dx) Start: 06-28-2022 End: 06-29-[address] DALILA COSBY Facility:[facility]1 Procedures Date Procedure Procedure Detail Performing Clinician Start: 12-03-2023 Adult depression scr eening assessment Dalila Cosby RELATIONSHIP EXECUTIVE-KELLER MACHINE OPERATOR Work Phone: Start: 10-03-2023 Mammography Dalila Cosby RELATIONSHIP EXECUTIVE-KELLER MACHINE OPERATOR Work Phone: Start: 09-12-2023 Mammography Dalila Harjeet RELATIONSHIP EXECUTIVE-KELLER MACHINE OPERATOR Work Phone: Start: 01-22-2023 Adult depression scr eening assessment Dalila Harjeet RELATIONSHIP EXECUTIVE-KELLER MACHINE OPERATOR Work Phone: Plan of Treatment Date Care Activity Detail Author Start: 02-09-2026 Screening for malign ant neoplasm of colon Colon Cancer Screening 3 Year Cologuard [facility] Start: 10-27-2025 Screening for malign ant neoplasm of cervix Pap Smear [facility] Start: 12-02-2024 Adult BMI Screening Adult BMI Screen ing [facility] Start: 12-02-2024 Depression Screening Depression Scre ening [facility] Start: 12-02-2024 Tobacco Screening Tobacco Screening [facility] Start: 10-03-2024 Screening for malign ant neoplasm of breast Mammogram [facility] Start: 09-12-2024 Screening for malign ant neoplasm of breast Mammogram [facility] Start: 01-23-2024 Adult BMI Screening Adult BMI Screen ing [facility] Start: 01-23-2024 Depression Screening Depression Scre ening [facility] Start: 01-23-2024 Tobacco Screening Tobacco Screening [facility] Start: 09-17-2023 End: 09-17-2024 MG Breast duct - left Views W contrast intra duct Mammography diagnostic unilateral left with CAD Imaging Routine Abnormal mammogram Expected: 09/17/2023, Expires: 09/17/2024 [facility] Work Phone: Comment on above: Expected: 09/17/2023 , Expires: 09/17/2024 Start: 09-17-2023 End: 09-17-2024 US Breast - left limited Ultrasound breast limited left Imaging Routine Abnormal mammogram Expected: 09/17/2023, Expires: 09/17/2024 [facility] Comment on above: Expected: 09/17/2023 , Expires: 09/17/2024 Start: 1992 DTaP,Tdap and Td Vaccines (1 - Tdap) DTaP,Tdap and Td Vaccines (1 - Tdap) [facility] Start: 12-20-1991 Adult BMI Follow Up Plan Adult BMI Follow Up Plan [facility] Immunizations Immunization Date Immunization Notes Care Provider Ray sheldon 06-26-2023 influenza virus vaccine, unspecified formulation Dalila MEZA Work Phone: [facility] 06-26-2023 influenza, injectabl e, quadrivalent, preservative free Dalila Cosby RELATIONSHIP EXECUTIVE-KELLER MACHINE OPERATOR Work Phone: [facility] 09-26-2017 Influenza, injectabl e, Madin Yoselin Canine Kidney, preservative free, quadrivalent Dalila Cosby RELATIONSHIP EXECUTIVE-KELLER MACHINE OPERATOR Work Phone: [facility] 09-26-2017 tuberculin skin test ; purified protein derivative solution, intradermal Dalila Cosby RELATIONSHIP EXECUTIVE-KELLER MACHINE OPERATOR Work Phone: [facility] Payers Date Payer Category Payer Private Health Insurance [facility] PLUS [id number] 2022-Present [phone] [address] [address] [place] [address] [id number] 2022 Private Health Insurance [id number] 1975 Unknown [id number] 1975 Unknown [id number] 1961 Private Health Insurance [id number] Social History Date Type Detail Facility Start: 11-22-2022 Tobacco smoking status NHIS Never smoked tobacco [facility] Start: 11-22-2022 Tobacco use and exposure Smokeless tobacco non-user [facility] Start: 01-22-2023 End: 12-03-2023 Alcohol intake Ex-drinker (finding) [facility] Start: 01-22-2023 End: 12-03-2023 Alcohol intake [facility] Start: 01-22-2023 End: 12-03-2023 Tobacco use panel [facility] How hard is it for you to pay for the very basics like food, housing, medical care, and heating Not hard at all [facility] Start: 11-22-2022 Alcohol Comment occasion [facility] Start: 1975 Sex Assigned At Not on file [facility] NEGATED: Highlighted rowStart: NINF History of tobacco use Passive smoker [facility] Evaluation note 12-04-2023 Note Date & Type Note Facility 12-04-2023 Evaluation note Diagnosis Visit for annual health examination- Primary BMI 22.0-22.9, adult Irritable bowel syndrome with constipation Irritable bowel syndrome Xavi's thyroiditis Chronic lymphocytic thyroiditis documented in this encounter [facility] History of Present illness Narrative 12-03-2023 Dalila Cosby, RELATIONSHIP EXECUTIVE-KELLER MACHINE OPERATOR - 12/03/2023 4:20 PM EDT Note Date & Type Note Facility 12-03-2023 History of Present illness Narrative Subjective Patient ID: Stacy Fonseca is a 47 y.o. female. Here for wellness exam Her linzess is still working well for her, she no longer has painful or difficult to pass bowel movements She does see the customer servicer every three months for her thyroid and has that adjusted She is up to date on her mammogram but does need a recheck in 6 months which will be in March In the past year she has lost 14 lbs with adjusting her diet and she feels good The following portions of the patient's history were reviewed and updated as appropriate: allergies, current medications, past family history, past medical history, past social history, past surgical history, problem list, and medication reconciliation was completed including current medication and post discharge medication. Review of Systems Constitutional: Negative. HENT: Negative. Eyes: Negative. Respiratory: Negative. Cardiovascular: Negative. Gastrointestinal: Positive for constipation (controlled with linzess). Endocrine: Negative. Genitourinary: Negative. Musculoskeletal: Negative. Skin: Negative. Allergic/Immunologic: Negative. Hematological: Negative. Psychiatric/Behavioral: Negative. Objective Physical Exam Vitals and nursing note reviewed. Constitutional: Appearance: She is normal weight. HENT: Head: Normocephalic. Eyes: Conjunctiva/sclera: Conjunctivae normal. Neck: Vascular: No carotid bruit. Cardiovascular: Rate and Rhythm: Normal rate and regular rhythm. Pulses: Normal pulses. Heart sounds: Normal heart sounds. No murmur heard. Pulmonary: Effort: Pulmonary effort is normal. Breath sounds: Normal breath sounds. Musculoskeletal: Cervical back: Neck supple. No rigidity or tenderness. Right lower leg: No edema. Left lower leg: No edema. Lymphadenopathy: Cervical: No cervical adenopathy. Skin: General: Skin is warm and dry. Capillary Refill: Capillary refill takes less than 2 seconds. Neurological: General: No focal deficit present. Mental Status: She is alert and oriented to person, place, and time. Psychiatric: Mood and Affect: Mood normal. Behavior: Behavior normal. Thought Content: Thought content normal. Judgment: Judgment normal. Assessment/Plan Stacy was seen today for annual exam. Diagnoses and all orders for this visit: Visit for annual health examination BMI 22.0-22.9, adult Irritable bowel syndrome with constipation Xavi's thyroiditis She had screening mammogram in 10/03, due to some findings in the left breast even though they appear benign she will need some f/u in March, discussed We reviewed her labs from last year, her blood sugar, kidney liver and cholesterol were excellent and with the 14 lb weight loss this year putting her at a bmi of 22 elected not to draw labs this year Her cologaurd is up to date She is doing well on linzess and will continue with this She continues to follow with endocrinology for her thryoid adjustments She is due for her next pap in 2025 and is not having any problems with the menopausal period SUSANA Hernandez 12/03/23 1646 documented in this encounter [facility] Evaluation note Note Date & Type Note Facility Evaluation note Diagnosis Abnormal mammogram- Primary Abnormal mammogram, unspecified documented in this encounter [facility] Evaluation note Note Date & Type Note Facility Evaluation note Diagnosis Irritable bowel syndrome with constipation Irritable bowel syndrome documented in this encounter [facility] Instructions Note Date & Type Note Facility Instructions Not on filedocumented in this en counter [facility] Instructions Note Date & Type Note Facility Instructions Not on filedocumented in this en counter [facility] Summary Purpose Family History No Family History Records FoundNo Family History Records FoundNo Family History Records Found Advance Directives No Advanced Directives Records FoundNo Advanced Directives Records FoundNo Advanced Directives Records Found Additional Source Comments INFORMATION SOURCE (unrecogn ized section and content) DATE CREATED AUTHOR 11/01/2020 [facility] DATE CREATED AUTHOR AUTHOR'S ORGANIZ ATION 07/03/2022 [facility] DATE CREATED AUTHOR AUTHOR'S ORGANIZ ATION 12/04/2023 [facility] Care Teams (unrecognized sec tion and content) Dining Chair Seat Cushion Trimmer Relationship Specialty Start Date End Date Dalila Cosby, RELATIONSHIP EXECUTIVE-KELLER MACHINE OPERATOR [address] [place] [address] PCP - General Internal Medicine 10/10/22 Dining Chair Seat Cushion Trimmer Relationship Specialty Start Date End Date Dalila Cosby, RELATIONSHIP EXECUTIVE-KELLER MACHINE OPERATOR [address] [place] [address] PCP - General Internal Medicine 10/10/22 Reason for Visit (unrecogniz ed section and content) Reason Comments Med Refill Reason Comments Annual Exam FOR RECORDS PERTAINING TO PATIENTS WHO ARE [...] BE BASED ON THE PRIMARY CLINICAL RECORDS. [facility]. provides no warranty or guarantee of the accuracy or completeness of information in this document.
--- NOTE | 2024-04-10 09:24 | MM_ITS ---
Patient Name: STACY FONSECA MR#: [id number] : 1975 Exam Date: 04/10/2024 Ordering Doctor: FLORIDALMA MALHOTRA RADIOLOGY REPORT PROCEDURE: MM TOMOSYNTHESIS DIAGNOSTIC LT, 04/10/2024, 09:31 US BREAST LT LIMITED, 04/10/2024, 09:55 COMPARISON: US BREAST LT LIMITED, 10/03/2023. MM DIAGNOSTIC MAMMO UNILAT LT, 10/03/2023. MM TOMOSYNTHESIS SCREENING BI, 09/12/2023. MG MAMM SCREEN 3D [place]O CAD, 06/28/2022. MG MAMM SCREEN 3D [place] CAD, 05/06/2021. INDICATIONS: Abnormal Diagnostic Mammogram Calculator Name NCI Breast Cancer Risk Assessment Tool 5 Year Breast Cancer Risk 1.30% Lifetime Breast Cancer Risk 12.10% Personal Breast Cancer No Personal Ovarian Cancer No Treatments None Family Cancers Aunt-paternal with breast cancer at age 43; Aunt-paternal with breast cancer at age 44; Father with lung cancer at age 52; Uncle-paternal with lung cancer at age 53; Uncle-paternal with lung cancer at age 54. LOCATION: [facility] BREAST COMPOSITION: The breasts are heterogeneously dense,which may obscure small masses. FINDINGS: DIAGNOSTIC CATEGORY 0--INCOMPLETE: NEED ADDITIONAL IMAGING EVALUATION. LEFT BREAST: Grossly stable appearance of several poorly marginated opacities within anterior breast which were new on prior study. Normal smooth contour of left breast implant. Ultrasound evaluation demonstrates slight increase in size of a mixed cystic and solid, but predominantly multi cystic lesion at the 11 o'clock position 3.4 cm from the nipple, now measuring 10 x 8 x 5 millimeters. Stable appearance of a single minimally dilated duct at the 11 o'clock position, 2 millimeters, now containing internal debris. Stable small 3 mm cyst at the 11 o'clock position 3.4 cm from the nipple. Two small masses at the 11 o'clock position, 6.7 cm from the nipple, 5 millimeters diameter. Stable complex cysts versus septated cyst at the 8 o'clock position 3.0 cm from the nipple, 4 millimeters diameter. While not overtly suspicious, given the complexity of multiple nonspecific lesions within the left breast and an underlying breast implant, MRI of the breasts is recommended for further evaluation. RECOMMENDATIONS: BREAST MRI: LEFT BREAST PLEASE NOTE: A NORMAL MAMMOGRAM DOES NOT EXCLUDE THE POSSIBILITY OF BREAST CANCER. A CLINICALLY SUSPICIOUS PALPABLE LUMP SHOULD BE BIOPSIED. Dictated by: Chivo Good M.D. on 04/11/2024 at 13:43 Approved by: Chivo Good M.D. on 04/11/2024 at 13:58
== END 2024-04-10 09:18 | disposition home or self-care (01) ==
LOC: MAMMO 09:18
PROVIDERS: PCP Nurse Practitioner Family; Visit Provider Nurse Practitioner Family
DX: R92.8 Other abnormal and inconclusive findings on diagnostic imaging of breast (principal); Z80.3 Family history of malignant neoplasm of breast; Z80.1 Family history of malignant neoplasm of trachea, bronchus and lung
CPT/HCPCS: 76642; 77065; G0279